=== PATIENT | male | born 1965 | race African-American/Black ===

== ENCOUNTER 2024-07-09 18:11 | Inpatient (IN) | payer BC ==
[~2024-07-09] VITALS: Ht 180.3 cm; Wt 117.0 kg
[2024-07-09 18:42] LABS: BASOPHILS % 0.6 % (0.0-2.0); EOSINOPHILS % 4.1 % (0.0-5.0); HEMATOCRIT. 41.8 % (42.0-52.0); HEMOGLOBIN. 13.6 g/dL (14.0-18.0); LYMPHOCYTES % 47.3 % (20.0-50.0); MEAN CORPUSCULAR HEMOGLOBIN 31.4 pg (28.0-32.0); MEAN CORPUSCULAR HGB CONC 32.6 g/dL (31.0-37.0); MEAN CORPUSCULAR VOLUME 96.6 fL (80.0-94.0); MEAN PLATELET VOLUME 7.4 fl (7.4-10.4); MONOCYTES % 7.3 % (2.0-8.0); NEUTROPHILS % 40.7 % (40.0-76.0); PLATELET 191 x1000/uL (130-400); RED BLOOD CELL COUNT 4.33 mill/uL (4.7-6.1); WHITE BLOOD COUNT 6.5 x1000/uL (4.5-11.0)
[2024-07-09 18:44] LABS: CHLORIDE 107 mEq/L (98-107); POTASSIUM 3.3 mEq/L (3.5-5.1); SODIUM 140 mEq/L (136-145)
[2024-07-09 18:45] LABS: CARBON DIOXIDE 22 mEq/L (21-32)
[2024-07-09 18:50] LABS: CREATININE 1.1 mg/dL (0.6-1.3); GLUCOSE 169 mg/dL (70-105); UREA NITROGEN BLOOD 9 mg/dL (9-23)
[2024-07-09 18:59] LABS: TROPONIN I HIGH SENSITIVITY < 4 ng/L (3.0-53)
[2024-07-09 22:00] VITALS: BP 138/85; PULSE 65; RESP 18; TEMP 36.33624; O2SAT 99
[2024-07-09 22:35] VITALS: BP 140/93; PULSE 67; RESP 15; TEMP 36.3624
[2024-07-10] VITALS (8 sets, daily range): BP systolic 143–159; BP diastolic 87–118; PULSE 64–76; RESP 10–17; TEMP 36.44736–37.05852; O2SAT 94–100
[2024-07-10] MEDS: POTASSIUM CHLORIDE 20MEQ TABLET SR PO NR (00:38)
[2024-07-10] MEDS: AMLODIPINE 5MG TABLET PO SCH (13:21)
[2024-07-10] MEDS: LOSARTAN 25 MG TABLET PO SCH (13:21)
== END 2024-07-11 | disposition home or self-care (01) | DRG 74 ==
LOC: ER 18:11 → 5EST 19:39 → EDBEDREQ 19:59 → EDBEDREQSVC 19:59
PROVIDERS: ADMIT Internal Medicine; ATTEND Internal Medicine
DX: G90.9 Disorder of the autonomic nervous system, unspecified (principal); I44.1 Atrioventricular block, second degree; E78.00 Pure hypercholesterolemia, unspecified; I48.0 Paroxysmal atrial fibrillation; N40.0 Benign prostatic hyperplasia without lower urinary tract symptoms; J45.909 Unspecified asthma, uncomplicated; I10 Essential (primary) hypertension
CPT/HCPCS: 36415; 71045; 80048; 83735; 83880; 84484; 85025; 86850; 86900; 93005; 99291